=== PATIENT | male | born 1950 | race Caucasian/White ===

== ENCOUNTER 2021-12-10 02:25 | Inpatient (IN) | payer MEDICARE, OTHER ==
[~2021-12-10] VITALS: Ht 182.9 cm; Wt 54.0 kg
[2021-12-10] VITALS (15 sets, daily range): BP systolic 103–128; BP diastolic 46–80
--- NOTE | 2021-12-10 02:57 | NUR ---
BIBRA FOR C/O N/V AND HYPERGLYCEMIA. READ "HIGH" AT FACILITY, WAS GIVEN 10 UNITS INSULIN AND SENT FOR EVAL. HX TYPE 1 DIABETES. PT EXPERIENCED EPISODE OF VOMITING WELL NASUEA. PT AWAKE AND ALERTX 4, ON 5LPM NC AT BASELINE. PLACED ON MONITOR AND V/S WNL.
[2021-12-10] MEDS ORDERED: IV NS 0.9% 1,000 ML BAG IV ONE (03:00)
[2021-12-10] MEDS ORDERED: LIDOCAINE 2% JEL UROJET 10 ML MM ONE (03:02)
--- NOTE | 2021-12-10 03:11 | NUR ---
URINE COLLECTED AND SENT TO LAB
--- NOTE | 2021-12-10 03:14 | NUR ---
EMT AT BEDSIDE FOR EKG
--- NOTE | 2021-12-10 03:23 | NUR ---
PHLEB AT BEDSIDE
[2021-12-10 03:41] LABS: BASOPHILS % (AUTO) 0.2 % (0.0-2.0); EOSINOPHILS % (AUTO) 0.2 % (0.0-6.0); HEMATOCRIT 34 % (39-51); HEMOGLOBIN 10.7 g/dL (13.5-17.5); LYMPHOCYTES # (AUTO) 0.8 K/uL (0.8-4.8); LYMPHOCYTES % (AUTO) 14.8 % (20.0-44.0); MEAN CORPUSCULAR HGB CONC 32 g/dl (31.0-36.0); MEAN CORPUSCULAR VOLUME 102 fL (80-96); MONOCYTES # (AUTO) 0.1 K/uL (0.1-1.30); MONOCYTES % (AUTO) 2.7 % (2.0-12.0); NEUTROPHILS # (AUTO) 4.4 K/uL (1.8-8.9); NEUTROPHILS % (AUTO) 82.1 % (43.0-81.0); PLATELET COUNT (AUTO) 192 K/uL (150-450); RED BLOOD CELL COUNT(AUTO) 3.31 MIL/uL (4.5-6.0); WHITE BLOOD COUNT (AUTO) 5.3 K/uL (4.3-11.0)
[2021-12-10 04:35] LABS: BILIRUBIN,URINE NEGATIVE (NEGATIVE); COLOR,URINE YELLOW (YELLOW); LEUKOCYTE ESTERASE ,URINE NEGATIVE (NEGATIVE); NITRITE, URINE NEGATIVE (NEGATIVE); PH,URINE 5.5 (5.0-8.0); PROTEIN,URINE NEGATIVE (NEGATIVE); UGLUCOSE >=1000 mg/dL (NEGATIVE); UROBILINOGEN,URINE 0.2 EU/dL (0.2)
[2021-12-10] MEDS ORDERED: ONDANSETRON HCL/PF 4 MG/2 ML VIAL ONE ×2 (04:46→06:27)
[2021-12-10] MEDS ORDERED: INSULIN REGULAR, HUMAN 100 UNIT/ML 10 ML VIAL ONE (04:52)
[2021-12-10] MEDS ORDERED: ONDANSETRON HCL/PF 4 MG/2 ML VIAL IV ONE (05:00)
[2021-12-10] MEDS ORDERED: INSULIN REGULAR, HUMAN 100 UNIT/ML 10 ML VIAL IV ONE (05:00)
[2021-12-10 06:02] LABS: ALANINE AMINOTRANSFERASE 25 U/L (12-78); ALKALINE PHOSPHATASE 104 U/L (46-116); ASPARTATE AMINOTRANSFERASE 18 U/L (15-37); BILIRUBIN,DIRECT 0.1 mg/dL (0.0-0.2); BILIRUBIN,TOTAL 0.5 mg/dL (0.2-1.0); CALCIUM, SERUM 9.1 mg/dL (8.5-10.1); CARBON DIOXIDE 15 mmol/L (21-32); CHLORIDE 96 mmol/L (98-107); CREATININE 1.3 mg/dL (0.6-1.3); LIPASE 23 U/L (73-393); POTASSIUM 5.2 mmol/L (3.5-5.1); SODIUM SERUM 130 mmol/L (136-145); TOTAL PROTEIN, SERUM 6.6 g/dL (6.4-8.2); UREA NITROGEN, BLOOD 39 mg/dL (7-18)
[2021-12-10 06:06] LABS: GLUCOSE > 500 mg/dL (74-106)
--- NOTE | 2021-12-10 06:24 | NUR ---
PT REFUSED BLOOD DRAW DUE TO NASUEA/VOMITING. MADE AWARE.
[2021-12-10] MEDS ORDERED: ONDANSETRON HCL/PF - ER 4 MG/2 ML VIAL IV ONE (06:30)
--- NOTE | 2021-12-10 07:00 | NUR ---
LAB INFORMED PT READY FOR BLOOD DRAW
--- NOTE | 2021-12-10 07:14 | NUR ---
LEONADRO COLLECTED AND SENT TO LAB
[2021-12-10 07:56] LABS: VBG COHb 0.7 %; VBG MetHb 0.3 %; VENT MODE, VBG 4LNC VBG
[2021-12-10] MEDS ORDERED: IV NS 0.9% 1,000 ML IV PRN (08:00)
[2021-12-10] MEDS ORDERED: INSULIN REGULAR, HUMAN 100 UNITS in IV NS 0.9% 100 ML IV PRN ×2 (08:00)
--- NOTE | 2021-12-10 08:09 | NUR ---
MOVE SHEET SUBMITTED.
--- NOTE | 2021-12-10 08:50 | NUR ---
[facility] CALLED FOAM RUBBER MOLDER PAGED.
--- NOTE | 2021-12-10 08:51 | NUR ---
GOT BED 256
--- NOTE | 2021-12-10 08:59 | NUR ---
PT REPORT GIVEN TO AMITA LYLES RN
[2021-12-10] MEDS ORDERED: IV LR 1000 ML 1,000 ML IV ONE (09:00)
[2021-12-10 09:01] LABS: CALCIUM, SERUM 9.1 mg/dL (8.5-10.1); CREATININE 1.3 mg/dL (0.6-1.3); POTASSIUM 4.8 mmol/L (3.5-5.1)
[2021-12-10 09:05] LABS: MAGNESIUM 2.4 mg/dL (1.8-2.4); PHOSPHORUS 3.9 mg/dL (2.5-4.9)
[2021-12-10] MEDS ORDERED: TERA10CA4 PO (09:05)
[2021-12-10] MEDS ORDERED: HYDR-4303 PO (09:05)
[2021-12-10] MEDS ORDERED: ALBU8.5H8 IH (09:05)
[2021-12-10] MEDS ORDERED: INSU100V42 SUBCUT ×3 (09:05)
[2021-12-10] MEDS ORDERED: PRAV40TA3 PO (09:05)
[2021-12-10] MEDS ORDERED: SENN-261 PO (09:05)
[2021-12-10] MEDS ORDERED: FINA5TAB11 PO (09:05)
[2021-12-10] MEDS ORDERED: MELA5TAB PO (09:05)
[2021-12-10] MEDS ORDERED: CARB-231 EACHEYE (09:05)
[2021-12-10] MEDS ORDERED: POLY17PO4 PO (09:05)
[2021-12-10] MEDS ORDERED: TIOT18CA3 IH (09:05)
[2021-12-10] MEDS ORDERED: INSU100V7 SQ (09:05)
[2021-12-10] MEDS ORDERED: INSU100V42 (09:05)
[2021-12-10] MEDS ORDERED: MOME13HF3 IH (09:05)
[2021-12-10] MEDS ORDERED: PSYL660P17 PO (09:05)
[2021-12-10] MEDS ORDERED: MULT-447 PO (09:05)
[2021-12-10] MEDS ORDERED: TRAZ-257 PO (09:05)
[2021-12-10] MEDS ORDERED: GABA-532 PO (09:05)
[2021-12-10] MEDS ORDERED: ALBUTEROL SULFATE 8 GM HFA.AER.AD IH PRN (09:30)
--- NOTE | 2021-12-10 09:39 | NUR ---
BS 420; MAINTAIN INSULIN DRIP AT 6U/HR PER PROTOCOL.
[2021-12-10] MEDS ORDERED: ONDANSETRON HCL/PF 4 MG/2 ML VIAL IVP PRN (10:00)
[2021-12-10] MEDS ORDERED: Z GUARD REMEDY 4 OZ OINT TP PRN (10:00)
[2021-12-10] MEDS ORDERED: ACETAMINOPHEN 325 MG TABLET PO PRN (10:00)
[2021-12-10] MEDS ORDERED: GABAPENTIN 100 MG CAPSULE PO SCH (10:00)
[2021-12-10] MEDS ORDERED: INSULIN REGULAR, HUMAN 100 UNIT in IV NS 0.9% 99 ML IV PRN ×2 (10:00)
[2021-12-10] MEDS ORDERED: ALBUTEROL FS 2.5 MG/0.5 ML VIAL.NEB NEB PRN (10:30)
[2021-12-10 10:45] LABS: CALCIUM, SERUM 9.1 mg/dL (8.5-10.1); CREATININE 1.3 mg/dL (0.6-1.3); MAGNESIUM 2.3 mg/dL (1.8-2.4); POTASSIUM 4.7 mmol/L (3.5-5.1)
[2021-12-10] MEDS ORDERED: Potassium Chloride 20 MEQ in IV LR 1000 ML 1,000 ML IV SCH (11:00)
--- NOTE | 2021-12-10 11:08 | NUR ---
BS 326; INSULIN DRIP DECREASED TO 4U/HR PER PROTOCOL.
[2021-12-10 11:18] LABS: THYROID STIMULATING HORMONE 0.869 uIU/mL (0.358-3.74)
--- NOTE | 2021-12-10 11:40 | NUR ---
PT TRANSFERRED TO 256 VIA [facility] ACLS PROTOCOL. WARM HANDOFF GIVEN TO JOSÉ MIGUEL LYLES
--- NOTE | 2021-12-10 11:45 | NUR ---
FISH AND WILDLIFE TECHNICIAN NOTE: LAB REPORTED CRITICAL LAB VALUE FOR GLUCOSE OF 452 MG/DL. LAST GLUCOSE WAS 533 MG/DL. TRENDING DOWN IN THE RIGHT DIRECTION. WILL CONTINUE TO MONITOR PT.'S BLOOD GLUCOSE AND SIGNS AND SYMPTOMS OF HYPER/HYPOGLYCEMIA.
--- NOTE | 2021-12-10 12:00 | NUR ---
BOOK AUTHORMONEY MARKET DEALER NOTE: RECEIVED PT. FROM ER VIA GURNEY AT 1119. REPORT GIVEN BY MADI SOTOMAYOR RN. PT. AWAKE, AOX4, NO COMPLAINTS OF PAIN/DISCOMFORT AT THIS TIME. ON 4L O2 VIA NASAL CANNULA, SATURATING AT 99%. NO S/S OF RESPIRATORY DISTRESS. STITCH BONDING MACHINE TENDER HELPER READS NSR/SINUS TACH WITH HR FROM 90-102 BPM. PT. WAS ON STRAIGHT CATH FROM ER WITH OUTPUT OF 1,000ML CLEAR YELLOW URINE. WILL INSERT SCHMIDT CATH PER MD ORDER. SACRAL REDNESS NOTED. MEPILEX APPLIED. PT. ON NPO EXCEPT ICE CHIPS & LITTLE SIP OF WATER FOR MEDS, PER MD ORDER. IV ACCESS ON R WRIST #18G WITH POTASSIUM CHLORIDE 20 MEQ IN LR RUNNING AT 100ML/HR; INSULIN DRIP RUNNING AT 4.83 UNITS/HR, TITRATED PER MD ORDER. IV DRESSING C/D/I WITH NO S/S OF INFILTRATION. SAFETY MEASURES IN PLACE: BED IN LOWEST AND LOCKED POSITION, HOB ELEVATED AT 30 DEGREES, BED ALARM ON, CALL LIGHT WITHIN REACH. WILL TURN AND REPOSITION Q2H AND CONTINUE TO MONITOR PT. FOR ANY CHANGES.
[2021-12-10] MEDS: BLOOD SUGAR DIAGNOSTIC 1 EACH STRIP IN SCH ×8 (12:20→21:51)
[2021-12-10] MEDS: PANTOPRAZOLE 40 MG VIAL IV SCH (12:26)
[2021-12-10] MEDS: ENOXAPARIN SODIUM 40 MG/0.4 ML DISP.SYRIN SQ SCH (12:29)
[2021-12-10] MEDS: IPRATROPIUM NEB FS 0.5 MG/2.5 ML AMPUL.NEB IH SCH ×2 (13:28→19:30)
[2021-12-10 14:14] LABS: CALCIUM, SERUM 8.6 mg/dL (8.5-10.1); MAGNESIUM 1.8 mg/dL (1.8-2.4); PHOSPHORUS 2.1 mg/dL (2.5-4.9)
[2021-12-10 15:21] LABS: POTASSIUM 6.6 mmol/L (3.5-5.1)
--- NOTE | 2021-12-10 15:30 | NUR ---
SPICE FUMIGATOR NOTE: LAB CALLED AT 1522 TO INFORM CRITICAL LAB VALUE OF POTASSIUM AT 6.6. DR. SASKIA CERVANTES INFORMED AT 1524. ORDERED TO DC IVF OF KCL 20MEQ IN LR AND REPLACE WITH D5 1/2 NS AT SAME RATE OF 100ML/HR. DR. CERVANTES ALSO ORDERED TO REPEAT LAB DRAW FROM ARM WITH NO IV FLUID RUNNING. ORDER FOLLOWED AND WILL CONTINUE TO MONITOR PT.'S POTASSIUM AND BLOOD GLUCOSE.
[2021-12-10] MEDS: IV D5/0.45 NACL 1,000 ML IV PRN (15:38)
[2021-12-10] MEDS ORDERED: DEXTROSE 50%-WATER 50 ML DISP.SYRIN IV PRN (16:00)
[2021-12-10] MEDS ORDERED: SODIUM POLYSTYRENE SULFONATE 15 G/60 ML BOTTLE PO ONE (17:00)
[2021-12-10] MEDS ORDERED: K PHOS NEUTRAL 250 MG TABLET PO ONE (17:00)
[2021-12-10] MEDS: INSULIN ASPART/LISPRO 100 UNIT/ML CARTRIDGE SQ SCH (17:38)
[2021-12-10] MEDS: INSULIN REGULAR, HUMAN 100 UNIT/ML 3 ML VIAL SQ PRN ×3 (17:39→23:39)
[2021-12-10 17:51] LABS: CALCIUM, SERUM 8.9 mg/dL (8.5-10.1); POTASSIUM 4.1 mmol/L (3.5-5.1)
[2021-12-10 17:55] LABS: PHOSPHORUS 3.1 mg/dL (2.5-4.9)
--- NOTE | 2021-12-10 19:20 | NUR ---
CLINICAL CARE COORDINATOR CLOSING NOTE: PT. REMAINS IN BED, AWAKE, AOX4, NO COMPLAINTS OF PAIN/DISCOMFORT AT THIS TIME. NOW ON 2L O2 VIA NASAL CANNULA, SATURATING AT 99%. NO S/S OF RESPIRATORY DISTRESS. AIRLINE PILOT READS NSR WITH HR OF 90 BPM AT THIS TIME. SCHMIDT CATH INSERTED WITH OUTPUT OF 300 ML CLEAR YELLOW URINE THIS SHIFT. SACRAL REDNESS NOTED. MEPILEX APPLIED. PT. NOW ON CCHO DIET. IV ACCESS ON R WRIST #18G WITH D5 1/2 NS RUNNING AT 100ML/HR; INSULIN DRIP STOPPED AT 1547 PER MD ORDER. LAST BG AT 1800 WAS 178 MG/DL. IV DRESSING C/D/I WITH NO S/S OF INFILTRATION. SAFETY MEASURES MAINTAINED: BED IN LOWEST AND LOCKED POSITION, HOB ELEVATED AT 30 DEGREES, BED ALARM ON, CALL LIGHT WITHIN REACH. TURNED AND REPOSITIONED Q2H. ENDORSED CONTINUITY OF CARE TO FORESTRY PILOT RN.
--- NOTE | 2021-12-10 20:40 | NUR ---
ICU/TIMBER SPOTTER LAB HERE TO DRAWN, TO DRAW BMP. AWAIT RESULTS
[2021-12-10 20:43] LABS: MAGNESIUM 2.1 mg/dL (1.8-2.4); PHOSPHORUS 3.1 mg/dL (2.5-4.9); POTASSIUM 3.7 mmol/L (3.5-5.1)
[2021-12-10] MEDS: TRAZODONE 50 MG TABLET PO SCH (21:51)
[2021-12-10] MEDS: ATORVASTATIN 40 MG TABLET PO SCH (21:52)
[2021-12-10] MEDS: TERAZOSIN HCL 5 MG CAPSULE PO SCH (21:53)
[2021-12-10] MEDS: SENNOSIDES 8.6 MG TABLET PO SCH (21:54)
[2021-12-10] MEDS: GABAPENTIN 100 MG CAPSULE PO SCH (21:54)
[2021-12-10] MEDS: INSULIN GLARGINE, 100 UNIT/ML CARTRIDGE SQ SCH (21:56)
[2021-12-10] MEDS ORDERED: TERAZOSIN HCL 5 MG CAPSULE PO SCH (22:00)
--- NOTE | 2021-12-10 22:12 | NUR ---
ICU/HAND LAMINATOR PER PT WHO IS ALERT X4, PT STATES HE DOESN'T HAVE ANY ALLERGY TO CODEINE AND ALBUTEROL. PT STATES THAT HE DOESN'T KNOW WHERE THIS WRONG INFORMATION CAME FROM.
[2021-12-10] MEDS: HYDROCODONE/APAP 5/325MG TABLET PO PRN (22:45)
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
--- NOTE | 2021-12-10 23:30 | NUR ---
ICU/DEVELOPMENTAL SPECIALIST THERE WAS A MIX UP WITH LAB, ASKED TO HAVE THIS REDRAWN. BLOOD SUGAR IS OVER 1000. ASKED THAT THIS IS NOT RELEASED.
[2021-12-11] VITALS (24 sets, daily range): BP systolic 92–153; BP diastolic 45–95
[2021-12-11 00:08] LABS: CALCIUM, SERUM 8.4 mg/dL (8.5-10.1); CREATININE 0.9 mg/dL (0.6-1.3); MAGNESIUM 1.9 mg/dL (1.8-2.4); PHOSPHORUS 3.2 mg/dL (2.5-4.9); POTASSIUM 3.6 mmol/L (3.5-5.1)
--- NOTE | 2021-12-11 00:30 | NUR ---
ICU/MANAGER TECHNICAL TRAINING BMP HAS BLOOD SUGAR IS 308, WHICH IS CLOSE TO CURRENT BLOOD SUGAR.
[2021-12-11] MEDS: IV D5/0.45 NACL 1,000 ML IV PRN ×3 (00:44→20:22)
[2021-12-11] MEDS: IPRATROPIUM NEB FS 0.5 MG/2.5 ML AMPUL.NEB IH SCH ×4 (00:45→20:21)
[2021-12-11] MEDS: BLOOD SUGAR DIAGNOSTIC 1 EACH STRIP IN SCH ×4 (00:45→12:20)
--- NOTE | 2021-12-11 00:47 | NUR ---
ICU/WAREHOUSE LOGISTICS MANAGER PT HAS BREATHING TREATMENT, PT JUST FELL ASLEEP. PT HAD REQUESTED THAT HE BE NOT BOTHERED SO THAT HE CAN SLEEP. WILL GIVE WHEN PT IS AWAKE
--- NOTE | 2021-12-11 02:15 | NUR ---
ICU/PILLOW FILLER BMP WAS RAN, AGAIN BLOOD SUGAR IS TRENDING DOWN
[2021-12-11 03:22] LABS: CALCIUM, SERUM 8.2 mg/dL (8.5-10.1); CREATININE 0.8 mg/dL (0.6-1.3); MAGNESIUM 1.9 mg/dL (1.8-2.4); PHOSPHORUS 2.7 mg/dL (2.5-4.9); POTASSIUM 3.2 mmol/L (3.5-5.1)
[2021-12-11] MEDS: GABAPENTIN 100 MG CAPSULE PO SCH ×3 (04:24→20:51)
[2021-12-11 05:02] LABS: BASOPHILS % (AUTO) 0.3 % (0.0-2.0); EOSINOPHILS % (AUTO) 0.8 % (0.0-6.0); HEMATOCRIT 28 % (39-51); HEMOGLOBIN 9.5 g/dL (13.5-17.5); LYMPHOCYTES # (AUTO) 1.4 K/uL (0.8-4.8); LYMPHOCYTES % (AUTO) 21.8 % (20.0-44.0); MEAN CORPUSCULAR HGB CONC 34 g/dl (31.0-36.0); MEAN CORPUSCULAR VOLUME 95 fL (80-96); MONOCYTES # (AUTO) 0.2 K/uL (0.1-1.30); MONOCYTES % (AUTO) 3.5 % (2.0-12.0); NEUTROPHILS # (AUTO) 4.8 K/uL (1.8-8.9); NEUTROPHILS % (AUTO) 73.6 % (43.0-81.0); PLATELET COUNT (AUTO) 200 K/uL (150-450); RED BLOOD CELL COUNT(AUTO) 2.93 MIL/uL (4.5-6.0); WHITE BLOOD COUNT (AUTO) 6.6 K/uL (4.3-11.0)
[2021-12-11 05:50] LABS: CALCIUM, SERUM 8.3 mg/dL (8.5-10.1); MAGNESIUM 1.9 mg/dL (1.8-2.4); PHOSPHORUS 3.2 mg/dL (2.5-4.9); POTASSIUM 2.9 mmol/L (3.5-5.1)
[2021-12-11 05:56] LABS: CREATININE 0.7 mg/dL (0.6-1.3)
--- NOTE | 2021-12-11 07:05 | NUR ---
STEWARD/STEWARDESS SMOKE ROOM OPENING NOTE: RECEIVED PT. IN BED, AWAKE, AOX4, NO COMPLAINTS OF PAIN/DISCOMFORT AT THIS TIME. REMAINS ON 2L O2 VIA NASAL CANNULA, SATURATING AT 99%. NO S/S OF RESPIRATORY DISTRESS. BI TESTER READS NSR WITH HR OF 78 BPM AT THIS TIME. PT. HAS SCHMIDT CATH WITH CLEAR YELLOW URINE DRAINING BY GRAVITY. MEPILEX APPLIED ON SACRAL REDNESS. IV ACCESS ON R WRIST #18G WITH D5 1/2 NS RUNNING AT 100ML/HR. IV DRESSING C/D/I WITH NO S/S OF INFILTRATION. SAFETY MEASURES IN PLACE: BED IN LOWEST AND LOCKED POSITION, HOB ELEVATED AT 30 DEGREES, BED ALARM ON, CALL LIGHT WITHIN REACH. WILL TURN AND REPOSITION AT LEAST Q2H. WILL CONTINUE TO MONITOR PT. FOR ANY CHANGES.
--- NOTE | 2021-12-11 07:10 | NUR ---
ICU/DIGITAL PUBLISHING SPECIALIST REPORT GIVEN TO DAY NURSE.
[2021-12-11] MEDS: INSULIN ASPART/LISPRO 100 UNIT/ML CARTRIDGE SQ SCH ×3 (07:30→17:42)
--- NOTE | 2021-12-11 07:53 | NUR ---
HOOKMAN NOTE: INSULIN LISPRO/ASPART 5 UNITS SCHEDULED AT 0730 HELD DUE TO BLOOD GLUCOSE OF 57 MG/DL WITH A REPEAT RESULT OF 55 MG/DL. PT. AOX4 AND DENIES DIZZINESS AT THIS TIME. NO OTHER OVERT S/S OF HYPOGLYCEMIA NOTED. ORANGE JUICE GIVEN AND PT. EATING BREAKFAST NOW. WILL RECHECK BLOOD GLUCOSE IN AN HOUR AND MONITOR PT. FOR S/S OF HYPO/HYPERGLYCEMIA.
--- NOTE | 2021-12-11 09:08 | NUR ---
RESIDENTIAL INSTRUCTOR NOTE: PT.'S BLOOD GLUCOSE IS NOW 95 MG/DL. WILL CONTINUE TO MONITOR BLOOD GLUCOSE AND S/S OF HYPER/HYPOGLYCEMIA.
[2021-12-11] MEDS: POLYETHYLENE GLYCOL 3350 17 GM POWD.PACK PO SCH (09:10)
[2021-12-11] MEDS: PANTOPRAZOLE 40 MG VIAL IV SCH (09:10)
[2021-12-11] MEDS: FINASTERIDE (5 MG) 5 MG TABLET PO SCH (09:11)
[2021-12-11] MEDS: HYDROCODONE/APAP 5/325MG TABLET PO PRN ×2 (09:12→20:49)
--- NOTE | 2021-12-11 09:26 | NUR ---
ASSISTANT PROFESSOR OF ENGLISH NOTE: PT. COMPLAINED OF LOWER BACK ACHING PAIN OF 7/10. NORCO PO GIVEN. WILL RE-ASSESS IN AN HOUR AND CONTINUE TO MONITOR PT.'S PAIN.
[2021-12-11] MEDS: INDOMETHACIN 25 MG CAPSULE PO SCH ×2 (09:31→17:42)
[2021-12-11 09:42] LABS: IRON, SERUM 55 ug/dl (50-175); TOTAL IRON BINDING CAPACITY 206 ug/dl (250-450)
[2021-12-11 09:55] LABS: FERRITIN 162 ng/mL (8-388)
[2021-12-11] MEDS ORDERED: POTASSIUM CHLORIDE 20 MEQ TAB.PRT.SR PO SCH (10:00)
[2021-12-11] MEDS: POTASSIUM CHLORIDE 20 MEQ TAB.PRT.SR PO SCH ×3 (10:28→11:34)
[2021-12-11] MEDS: ENOXAPARIN SODIUM 40 MG/0.4 ML DISP.SYRIN SQ SCH (11:00)
--- NOTE | 2021-12-11 11:50 | NUR ---
ULTRASOUND TESTER NOTE: INSULIN ASPART/LISPRO 5 UNITS SCHEDULED AT 1200 HELD DUE TO BLOOD GLUCOSE OF 124 MG/DL. WILL CONTINUE TO MONITOR PT.'S BLOOD GLUCOSE.
[2021-12-11] MEDS: GLUCERNA SHAKE 237 ML CAN PO SCH ×2 (12:13→18:01)
[2021-12-11] MEDS: BLOOD SUGAR DIAGNOSTIC 1 EACH STRIP VI SCH ×2 (17:19→20:56)
[2021-12-11] MEDS ORDERED: DEXTROSE 50%-WATER 50 ML DISP.SYRIN IV PRN (17:30)
[2021-12-11] MEDS ORDERED: *INSULIN REGULAR(HUMULIN R)HUM 100 UNIT/ML VIAL SQ PRN (17:30)
[2021-12-11] MEDS: INSULIN REGULAR, HUMAN 100 UNIT/ML 3 ML VIAL SQ PRN (17:40)
--- NOTE | 2021-12-11 19:00 | NUR ---
SHIRT FOLDING MACHINE OPERATOR CLOSING NOTE: PT. REMAINS IN BED, AWAKE, AOX4, NO COMPLAINTS OF PAIN/DISCOMFORT AT THIS TIME. PT. IS NOW TELE STATUS. NOW ON 1L O2 VIA NASAL CANNULA, SATURATING AT 98%. NO S/S OF RESPIRATORY DISTRESS. METAL ROOM DENTAL TECHNICIAN READS NSR WITH HR OF 84 BPM AT THIS TIME. PT. HAS SCHMIDT CATH WITH TOTAL OUTPUT OF 625 ML CLEAR YELLOW URINE. MEPILEX APPLIED ON SACRAL REDNESS. IV ACCESS ON R WRIST #18G WITH D5 1/2 NS RUNNING AT 100ML/HR. IV DRESSING C/D/I WITH NO S/S OF INFILTRATION. SAFETY MEASURES MAINTAINED: BED IN LOWEST AND LOCKED POSITION, HOB ELEVATED AT 30 DEGREES, BED ALARM ON, CALL LIGHT WITHIN REACH. TURNED AND REPOSITIONED AT LEAST Q2H. ENDORSED CONTINUITY OF CARE TO ERISA ATTORNEY RN.
[2021-12-11] MEDS: ATORVASTATIN 40 MG TABLET PO SCH (20:49)
[2021-12-11] MEDS: TERAZOSIN HCL 5 MG CAPSULE PO SCH (20:50)
[2021-12-11] MEDS: TRAZODONE 50 MG TABLET PO SCH (20:51)
[2021-12-11] MEDS: SENNOSIDES 8.6 MG TABLET PO SCH (20:51)
[2021-12-11] MEDS: INSULIN GLARGINE, 100 UNIT/ML CARTRIDGE SQ SCH (21:00)
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
[2021-12-12] VITALS (22 sets, daily range): BP systolic 94–149; BP diastolic 50–78
[2021-12-12] MEDS: IPRATROPIUM NEB FS 0.5 MG/2.5 ML AMPUL.NEB IH SCH ×4 (02:28→20:25)
[2021-12-12 03:59] LABS: BASOPHILS % (AUTO) 0.2 % (0.0-2.0); EOSINOPHILS % (AUTO) 0.9 % (0.0-6.0); HEMATOCRIT 27 % (39-51); HEMOGLOBIN 9.2 g/dL (13.5-17.5); LYMPHOCYTES # (AUTO) 1.2 K/uL (0.8-4.8); LYMPHOCYTES % (AUTO) 31.1 % (20.0-44.0); MEAN CORPUSCULAR HGB CONC 34 g/dl (31.0-36.0); MEAN CORPUSCULAR VOLUME 94 fL (80-96); MONOCYTES # (AUTO) 0.1 K/uL (0.1-1.30); MONOCYTES % (AUTO) 3.2 % (2.0-12.0); NEUTROPHILS # (AUTO) 2.6 K/uL (1.8-8.9); NEUTROPHILS % (AUTO) 64.6 % (43.0-81.0); PLATELET COUNT (AUTO) 191 K/uL (150-450); RED BLOOD CELL COUNT(AUTO) 2.88 MIL/uL (4.5-6.0)
[2021-12-12 04:26] LABS: ALBUMIN 2.2 g/dL (3.4-5.0); BILIRUBIN,TOTAL 0.3 mg/dL (0.2-1.0); CALCIUM, SERUM 8.1 mg/dL (8.5-10.1); CREATININE 0.7 mg/dL (0.6-1.3); MAGNESIUM 1.8 mg/dL (1.8-2.4); PHOSPHORUS 3.4 mg/dL (2.5-4.9); POTASSIUM 4.1 mmol/L (3.5-5.1); TOTAL PROTEIN, SERUM 5.3 g/dL (6.4-8.2)
[2021-12-12] MEDS: IV D5/0.45 NACL 1,000 ML IV PRN (05:14)
[2021-12-12] MEDS: GABAPENTIN 100 MG CAPSULE PO SCH ×3 (05:14→20:59)
[2021-12-12] MEDS ORDERED: PANTOPRAZOLE 40 MG TABLET.DR PO SCH (07:30)
[2021-12-12] MEDS: BLOOD SUGAR DIAGNOSTIC 1 EACH STRIP VI SCH ×3 (07:57→17:47)
[2021-12-12] MEDS: INSULIN REGULAR, HUMAN 100 UNIT/ML 3 ML VIAL SQ PRN ×2 (08:00→11:46)
[2021-12-12] MEDS: INSULIN ASPART/LISPRO 100 UNIT/ML CARTRIDGE SQ SCH ×3 (08:01→17:30)
[2021-12-12] MEDS: GLUCERNA SHAKE 237 ML CAN PO SCH ×3 (08:02→17:47)
[2021-12-12] MEDS: INDOMETHACIN 25 MG CAPSULE PO SCH (08:06)
[2021-12-12] MEDS: POLYETHYLENE GLYCOL 3350 17 GM POWD.PACK PO SCH (08:06)
[2021-12-12] MEDS: FINASTERIDE (5 MG) 5 MG TABLET PO SCH (08:06)
[2021-12-12] MEDS: HYDROCODONE/APAP 5/325MG TABLET PO PRN ×2 (09:24→19:00)
[2021-12-12] MEDS: ENOXAPARIN SODIUM 40 MG/0.4 ML DISP.SYRIN SQ SCH (11:50)
[2021-12-12] MEDS ORDERED: INDO-13 PO (12:53)
[2021-12-12] MEDS ORDERED: PANT40TA49 PO (12:53)
--- NOTE | 2021-12-12 14:20 | NUR ---
RN AMY TERRAZAS FROM ICU CALLED AND GAVE REPORT FOR THE PATIENT AT 6530
--- NOTE | 2021-12-12 14:20 | NUR ---
REPORT GIVEN TO RANDY OF [facility] REGARDING PATIENT'S TRANSFER ORDER.
--- NOTE | 2021-12-12 14:40 | NUR ---
VASILIY-RN AT BEDSIDE DURING TRANSFER OF PATIENT TO [facility] [id number]
--- NOTE | 2021-12-12 14:40 | NUR ---
PATIENT WAS TRANSFERRED TO [facility] 314 PER ORDER/PROTOCOL; STABLE, NO SSx OF DISTRESS NOTED AT THIS TIME. CHARGE NURSE AWARE.
--- NOTE | 2021-12-12 14:45 | NUR ---
RN NOTES RECEIVED PATIENT VIA GURNEY FROM ICU. PATIENT IS ALERT AND ORIENTED TIMES 4. NO PAIN NOTED. NO SOB NOTED. NO DISTRESS NOTED. SCHMIDT CATHETER INTACT AND DRAINING CLEAR URINE. IV ACCESS IS ON THE RIGHT WRIST # 18 GAGUE. ON O2 INHALATION VIA NASAL CANNULA AT 1 L/MIN. SACRAL REDNESS NOTED. NO BELONGING NOTED WITH THE P[ATIENT. ALL NEEDS ATTENDED. ALL SAFETY MEASURES IN PLACE. BED LOCKED IN THE LOWER POSITION. CALL LIGHT AND TABLE IN EASY REACH. SIDE RAILS UP TIMES 2. WILL CONTINUE TO MONITOR.
--- NOTE | 2021-12-12 15:08 | NUR ---
RELAYED TO DR. MCGEE THAT PER BUS AND TROLLEY DISPATCHER, RESULT/READING OF ECHOCARD IS LARGE POSTERIOR PERICARDIAL EFFUSION, PER RESPONSE "I KNOW, THANKS." Addendum: 12/12/21 at 1521 by NINI MENDEZ RN 1510: CHARGE NURSE AWARE OF THE ABOVE RESULT REGARDING ECHO
--- NOTE | 2021-12-12 15:23 | NUR ---
RN NOTES CALLED [facility] AT 1523 AND GAVE REPORT TO DIMPLE WITH PHONE NUMBER [phone].
--- NOTE | 2021-12-12 17:48 | NUR ---
RN NOTES HELD INSULIN FOR 1730. BLOOD SUGAR CHECK WAS 97.
--- NOTE | 2021-12-12 21:00 | NUR ---
DEVELOPMENT ENGINEER NOTES DISCHARGE PATIENT IN STABLE CONDITION WITH STABLE VITAL SIGNS. NO PAIN NOTED. NO SOB NOTED. NO DISTRESS NOTED. PATIENT IS ALERT AND ORIENTED TIMES 4. ALL THE DISCHARGE INSTRUCTIONS GIVEN TO THE PATIENT. ALL THE BELONGINGS ACCOUNTED. NO BELONGING NOTED. AMBULANCE CAME AROUND 2044. IV SITE REMOVED COVERED WITH DRY DRESSING. ID BAND REMOVED. CELL PHONE AND DIP PAINTER WITH THE PATIENT. PATIENT LEFT HOSPITAL IN STABLE CONDITION WITH STABLE VITAL SIGNS AT 2100. MD AND CHARGE NURSE AWARE OF THE DISCHARGE.
== END 2021-12-12 21:30 | DRG 637 ==
LOC: ER 02:32 → ICU 09:11 → TELE 12-12 14:38
PROVIDERS: ADMIT Nurse Practitioner Acute Care; ATTEND Nurse Practitioner Acute Care
DX: E11.10 Type 2 diabetes mellitus with ketoacidosis without coma (principal); N17.0 Acute kidney failure with tubular necrosis; E87.1 Hypo-osmolality and hyponatremia; I50.32 Chronic diastolic (congestive) heart failure; I31.39 Other pericardial effusion (noninflammatory); Z20.822 Contact with and (suspected) exposure to COVID-19; Z88.5 Allergy status to narcotic agent; Z88.8 Allergy status to other drugs, medicaments and biological substances; E78.5 Hyperlipidemia, unspecified; E87.5 Hyperkalemia; D53.9 Nutritional anemia, unspecified; N40.0 Benign prostatic hyperplasia without lower urinary tract symptoms; J44.9 Chronic obstructive pulmonary disease, unspecified; E11.42 Type 2 diabetes mellitus with diabetic polyneuropathy; I11.0 Hypertensive heart disease with heart failure; D63.8 Anemia in other chronic diseases classified elsewhere; E87.6 Hypokalemia
CPT/HCPCS: 36415; 71045-TC; 80048-TC; 80053-TC; 80061-TC; 80076-TC; 82728-TC; 82803-TC; 82962-TC; 83540-TC; 83690-TC; 83735-TC; 84100-TC; 84443-TC; 84484-TC; 85025-TC; 85378-TC; 85730-TC; 87081-TC; 93307-TC; 94799-TC; C9113; C9803; G0378; J1650; J1815; J2405; J3480; J3490; J7030; J7042; J7120